=== PATIENT | female | born 1960 | race African-American/Black ===

== ENCOUNTER 2016-12-05 21:31 | Emergency (ER) | payer OTHER ==
[~2016-12-05] VITALS: Ht 167.6 cm; Wt 106.6 kg
--- NOTE | ~2016-12-05 | EKG ---
[address] [place] [address] ELECTROCARDIOGRAM REPORT Name: BRIAN HUGO [facility] [id number] Admission: 12/05/16 Attend Phys: Discharge: 12/06/16 Date of : 56 Report #: [id number] THIS REPORT FOR: //name// [facility] ED Test Date: 2016-12-06 Test Time: 00:08:45 Pat Name: BRIAN HUGO Department: Room: Gender: F Glass Block Bender: jenelle : 1960 Requested By: Winter Estrella Order Number: [id number] MD: William Crowder Measurements Intervals [place] Rate: 89 P: 50 ND: 191 QRS: -5 QRSD: 84 T: 29 QT: 350 QTc: 426 Interpretive Statements Sinus rhythm No significant abnormality No previous ECG available for comparison Electronically Signed On 12-06-2016 7:51:02 MANAGER INTERNSHIP by William Crowder [email or web address] <ELECTRONICALLY SIGNED> By: William Crowder MD, [facility] 12/06/16 0751 [id number] William Crowder MD, FACC /EPI
--- NOTE | ~2016-12-05 | EKG ---
[place] [address] [facility] [place] [address] ELECTROCARDIOGRAM REPORT Name: BRIAN HUGO [facility] [id number] Admission: 12/05/16 Attend Phys: Discharge: 12/06/16 Date of : 56 Report #: [id number] THIS REPORT FOR: //name// [facility] ED Test Date: 2016-12-05 Test Time: 21:38:37 Pat Name: BRIAN HUGO Department: Room: Gender: F Pulverizer Feeder: [facility] : 1960 Requested By: Chichi Renteria Order Number: [id number] MD: William Crowder Measurements Intervals [place] Rate: 83 P: 61 [place]: 192 QRS: -12 QRSD: 83 T: 26 QT: 343 QTc: 403 Interpretive Statements Sinus rhythm Early R-wave progression No previous ECG available for comparison Electronically Signed On 12-06-2016 7:49:40 TEST RACK OPERATOR by William Crowder [email or web address] <ELECTRONICALLY SIGNED> By: William Crowder MD, [facility] 12/06/16 0749 [id number] [id number] William Crowder MD, FACC /EPI
[~2016-12-05 21:31] MED LIST: ASPIRIN EC81 M1 PO; CHLORTHALIDONE25 MG PO; DEPAKOTE; DEPAKOTE ER250 MG PO; DEPAKOTE ER500 MG PO; DICYCLOMINE; HYDROCORTISONE30 G9 TOP; HYDROXYZINE HCL25 M1 PO; LIDODERM 5%1 PATCH TOP; MEDROL DOSPAK21 TAB PO; RANITIDINE; TOPICORT 0.25%15 G1 TOP; TRAMADOL 50 MG50 MG; TRIAMCINOLONE 080 G3 TOP; ULTRAM 50MG TAB50 MG PO; VITAMIN D3400 UNI1 PO; ZOCOR 20 MG TAB20 M1 PO
[2016-12-05] MEDS ORDERED: CATAPRES-TTS 10.1 MG TD (21:42)
[2016-12-05] MEDS ORDERED: SIMVASTATIN40 MG PO (21:43)
[2016-12-05] MEDS ORDERED: PANTOPRAZOLE SO40 M1 PO (21:43)
[2016-12-05] MEDS ORDERED: COREG3.125 MG PO (21:44)
[2016-12-05] MEDS ORDERED: SENEXON-S TABL1 EACH PO (21:44)
[2016-12-05] MEDS ORDERED: LOXAPINE5 MG PO (21:45)
[2016-12-05] MEDS ORDERED: BENTYL 10 MG CA10 M1 PO (21:45)
[2016-12-05 22:06] LABS: ABSOLUTE NEUTROPHILS 4.9 thou/uL (1.4-8.2); BASOPHILS 0.8 % (0.0-2.0); EOSINOPHILS 2.5 % (0.0-3.0); HEMATOCRIT 42.2 % (37.0-47.0); LYMPHOCYTES 23.5 % (24.0-44.0); MCH 29.3 pg (26.0-34.0); MCHC 33.1 % (28.0-37.0); MCV 88.6 fL (80.0-100.0); MONOCYTES 10.2 % (1.0-8.0); PLATELET COUNT 249 thou/uL (150-400); RBC 4.76 mil/uL (4.20-5.00); RDW 14.1 % (10.5-14.5); WBC 7.7 thou/uL (4.0-11.0)
[2016-12-05 22:07] LABS: MANUAL DIFF NO
[2016-12-05 22:19] LABS: ANION GAP 8 mmol/L (7-16); BUN 11 mg/dL (7-18); CALCIUM 9.1 mg/dL (8.5-10.1); CHLORIDE 103 mmol/L (98-107); CO2 28 mmol/L (21-32); CREATININE 0.8 mg/dL (0.6-1.3); GLUCOSE 111 mg/dL (70-99); SODIUM 139 mmol/L (136-145)
[2016-12-05 22:24] LABS: TROPONIN-I < 0.04 ng/mL (<0.04-0.07)
[2016-12-06 01:07] VITALS: BP 146/75
== END 2016-12-06 01:08 | disposition home or self-care (01) ==
LOC: ER 21:31
PROVIDERS: Emergency Medicine
DX: R07.89 Other chest pain (principal); F31.9 Bipolar disorder, unspecified; M79.7 Fibromyalgia; Z88.6 Allergy status to analgesic agent

== ENCOUNTER 2019-03-03 13:12 | Emergency (ER) | payer OTHER ==
[~2019-03-03] VITALS: Ht 167.6 cm; Wt 106.1 kg
[~2019-03-03 13:12] MED LIST changes: +BENTYL 10 MG CA10 M1 PO; +CATAPRES-TTS 10.1 MG TD; +COREG3.125 MG PO; +LOXAPINE5 MG PO; +PANTOPRAZOLE SO40 M1 PO; +SENEXON-S TABL1 EACH PO; +SIMVASTATIN40 MG PO
[2019-03-03] MEDS ORDERED: ELIQUIS2.5 MG PO (13:34)
[2019-03-03 14:25] LABS: ABSOLUTE NEUTROPHILS 2.4 thou/uL (1.4-8.2); BASOPHILS 1.3 % (0.0-2.0); EOSINOPHILS 3.5 % (0.0-3.0); HEMOGLOBIN 13.2 gm/dL (12.0-15.0); LYMPHOCYTES 34.1 % (24.0-44.0); MCH 29.1 pg (26.0-34.0); MONOCYTES 11.1 % (1.0-8.0); PLATELET COUNT 238 thou/uL (150-400); RBC 4.55 mil/uL (4.20-5.00); RDW 13.9 % (10.5-14.5); WBC 4.8 thou/uL (4.0-11.0)
[2019-03-03 14:41] LABS: ANION GAP 9 mmol/L (7-16); BUN 10 mg/dL (7-18); CALCIUM 9.8 mg/dL (8.5-10.1); CHLORIDE 106 mmol/L (98-107); CO2 31 mmol/L (21-32); CREATININE 0.8 mg/dL (0.6-1.0); GLUCOSE 90 mg/dL (74-106); SODIUM 146 mmol/L (136-145); TROPONIN-I <0.06 ng/mL (<0.06)
[2019-03-03 14:45] LABS: POTASSIUM 2.9 mmol/L (3.5-5.1)
[2019-03-03] MEDS ORDERED: TESSALON PERLE100 MG PO (15:17)
[2019-03-03] MEDS ORDERED: KLOR-CON 1010 MEQ PO (15:17)
[2019-03-03] MEDS ORDERED: MAGOX 400400 MG PO (15:17)
[2019-03-03 15:55] VITALS: BP 146/68
--- NOTE | 2019-03-04 | EKG ---
[place] [address] [facility] [place] [address] ELECTROCARDIOGRAM REPORT Name: BRIAN HUGO Room #: [facility]#: [id number] ������������������ Admission: 03/03/19 ������������������ Attend Phys: Discharge: 03/03/19 ������������������ Date of : 56 Report #: [id number] ����������������������������������������������������������������� [id number] THIS REPORT FOR: //name// [facility] ED Test Date: 2019-03-03 Test Time: 13:28:21 Pat Name: BRIAN HUGO Department: Room: Gender: F Food Safety Scientist: : 1960 Requested By: Jose Camilo Order Number: [id number] MD: Oscar Palencia Measurements Intervals [place] Rate: 70 P: 51 IN: 204 QRS: -11 QRSD: 97 T: 29 QT: 386 QTc: 417 Interpretive Statements Sinus rhythm Borderline prolonged IN interval early transition non-specific st/t wave changes Compared to ECG 12/06/2016 00:08:45 no significant changes Electronically Signed On 03-03-2019 23:59:54 CDT by Oscar Palencia [email or web address] ��������������������������������������������� <ELECTRONICALLY SIGNED> ���������������������������������������� By: Oscar Palencia MD ��������������������������������������������� 03/03/19 [id number] 27 Oscar Palencia MD /EPI
== END 2019-03-03 15:57 | disposition home or self-care (01) ==
LOC: ER 13:12
PROVIDERS: Emergency Medicine
DX: J20.8 Acute bronchitis due to other specified organisms (principal); B97.89 Other viral agents as the cause of diseases classified elsewhere; E87.6 Hypokalemia; F31.9 Bipolar disorder, unspecified; M79.7 Fibromyalgia; Z88.6 Allergy status to analgesic agent

== ENCOUNTER 2019-07-06 14:24 | Emergency (ER) | payer OTHER ==
[~2019-07-06] VITALS: Ht 167.6 cm; Wt 79.4 kg
[~2019-07-06 14:24] MED LIST changes: +ELIQUIS2.5 MG PO; +KLOR-CON 1010 MEQ PO; +MAGOX 400400 MG PO; +TESSALON PERLE100 MG PO
[2019-07-06 15:44] LABS: ABSOLUTE NEUTROPHILS 4.1 thou/uL (1.4-8.2); BASOPHILS 0.9 % (0.0-2.0); EOSINOPHILS 1.6 % (0.0-3.0); HEMOGLOBIN 14.3 gm/dL (12.0-15.0); LYMPHOCYTES 19.6 % (24.0-44.0); MCH 29.2 pg (26.0-34.0); MCHC 33.3 g/dL (28.0-37.0); MCV 87.8 fL (80.0-100.0); MONOCYTES 8.4 % (1.0-8.0); PLATELET COUNT 251 thou/uL (150-400); POLYS 69.5 % (36.0-66.0); RBC 4.89 mil/uL (4.20-5.00); RDW 14.2 % (10.5-14.5)
[2019-07-06 16:00] LABS: APTT 18.6 Seconds (24.5-32.8); PROTIME 10.4 Seconds (9.3-11.4)
[2019-07-06 16:06] LABS: URINE BILIRUBIN NEGATIVE (Negative); URINE BLOOD NEGATIVE (Negative); URINE CLARITY CLEAR; URINE COLOR YELLOW; URINE GLUCOSE-RANDOM* NEGATIVE (Negative); URINE KETONES NEGATIVE (Negative); URINE LEUKOCYTES-REFLEX NEGATIVE (Negative); URINE NITRITE-REFLEX NEGATIVE (Negative); URINE PROTEIN (DIPSTICK) 1+ (Negative); URINE SPECIFIC GRAVITY >= 1.030 (1.005-1.035); URINE UROBILINOGEN 0.2 E.U./dl (0.2-1.0)
[2019-07-06 16:18] LABS: SQUAMOUS 4-10 Moderate /LPF (0-3)
[2019-07-06 16:18] LABS: CALCIUM 9.4 mg/dL (8.5-10.1); CREATININE 0.8 mg/dL (0.6-1.0); POTASSIUM 3.3 mmol/L (3.5-5.1)
[2019-07-06 16:19] LABS: BACTERIA-REFLEX None Seen /HPF (None Seen); CASTS None Seen /LPF (None Seen); CRYSTALS None Seen /LPF (None Seen); URINE RBC 0-2 Rare /HPF (0-2); URINE WBC-REFLEX 0-5 Rare /HPF (0-5)
[2019-07-06 16:20] LABS: MUCUS >6 Heavy strn/LPF (None Seen)
[2019-07-06 16:24] LABS: ALBUMIN 3.6 g/dL (3.4-5.0); DIRECT BILIRUBIN 0.1 mg/dL (<0.1-0.3); TOTAL BILIRUBIN 0.5 mg/dL (<0.1-1.0); TOTAL PROTEIN 7.4 g/dL (6.4-8.2)
[2019-07-06] MEDS ORDERED: ZOFRAN ODT4 MG PO (18:08)
[2019-07-06 18:24] VITALS: BP 141/81
== END 2019-07-06 18:25 | disposition home or self-care (01) ==
LOC: ER 14:24
PROVIDERS: Emergency Medicine
DX: R11.2 Nausea with vomiting, unspecified (principal); T81.89XA Other complications of procedures, not elsewhere classified, initial encounter; F31.9 Bipolar disorder, unspecified; I10 Essential (primary) hypertension; E78.5 Hyperlipidemia, unspecified; M79.7 Fibromyalgia; Z88.6 Allergy status to analgesic agent; Y84.9 Medical procedure, unspecified as the cause of abnormal reaction of the patient, or of later complication, without mention of misadventure at the time of the procedure; Y92.89 Other specified places as the place of occurrence of the external cause

== ENCOUNTER 2020-05-28 09:50 | Inpatient (IN) | payer OTHER ==
[~2020-05-28] VITALS: Ht 167.6 cm; Wt 90.7 kg
[2020-05-28 09:50] VITALS: BP 150/88
[~2020-05-28 09:50] MED LIST changes: +ZOFRAN ODT4 MG PO
[2020-05-28 10:43] LABS: ABSOLUTE NEUTROPHILS 6.6 thou/uL (1.4-8.2); BASOPHILS 0.6 % (0.0-2.0); HEMOGLOBIN 13.4 gm/dL (12.0-15.0); LYMPHOCYTES 12.3 % (24.0-44.0); MCH 29.3 pg (26.0-34.0); MCHC 33.5 g/dL (28.0-37.0); MCV 87.3 fL (80.0-100.0); PLATELET COUNT 260 thou/uL (150-400); POLYS 80.1 % (36.0-66.0); RBC 4.58 mil/uL (4.20-5.00); WBC 8.2 thou/uL (4.0-11.0)
[2020-05-28 10:52] LABS: CALCIUM 8.9 mg/dL (8.5-10.1); CREATININE 0.7 mg/dL (0.6-1.0)
[2020-05-28 10:55] LABS: POTASSIUM 2.9 mmol/L (3.5-5.1)
[2020-05-28 10:59] LABS: ALBUMIN 3.2 g/dL (3.4-5.0); TOTAL BILIRUBIN 0.5 mg/dL (0.2-1.0); TOTAL PROTEIN 6.7 g/dL (6.4-8.2)
[2020-05-28 11:00] LABS: LIPASE 87 U/L (73-393); TROPONIN-I <0.06 ng/mL (<0.06)
--- NOTE | 2020-05-28 11:00 | EKG ---
[facility] [place] [address] ELECTROCARDIOGRAM REPORT Name: BRIAN HUGO Room #: [facility]#: [id number] Admission: 05/28/20 Attend Phys: Discharge: Date of : 56 Report #: [id number] THIS REPORT FOR: cc: Dereje Mccoy MD, Samuel D. MD Couchonnal, Luis F. MD ~ THIS REPORT FOR: //name// [facility] ED Test Date: 2020-05-28 Test Time: 10:56:22 Pat Name: BRIAN HUGO Department: Room: Gender: Visiting Professor: [facility] : 1960 Requested By: Scooter Reynaga Order Number: [id number] : Ulysses Dimas Measurements Intervals [place] Rate: 80 P: 92 [place]: 196 QRS: -7 QRSD: 145 T: 9 QT: 388 QTc: 448 Interpretive Statements Sinus rhythm Probable left atrial enlargement Right bundle branch block Inferior infarct, old Lateral leads are also involved Compared to ECG 03/03/2019 13:28:21 Right bundle-branch block now present Myocardial infarct finding now present Electronically Signed On 05-28-2020 10:59:51 CDT by Ulysses Dimas [email or web address] <ELECTRONICALLY SIGNED> By: Ulysses Dimas MD 05/28/20 1059 1056 1056 Ulysses Dimas MD /EPI
[2020-05-28] MEDS ORDERED: FOLIC ACID1 MG PO (11:29)
[2020-05-28] MEDS ORDERED: COLACE 100 MG100 MG PO (11:30)
[2020-05-28] MEDS ORDERED: VITAMIN D350 MCG PO (11:32)
[2020-05-28] MEDS ORDERED: PEG3350510 GM PO (11:33)
[2020-05-28 13:56] VITALS: BP 126/72
--- NOTE | 2020-05-28 14:09 | NUR ---
ATTEMPTED TO CALL REPORT, STATES THAT THEY HAVE COMBATIVE PT AT THIS TIME WILL CALL BACK
--- NOTE | 2020-05-28 14:40 | NUR ---
CALLED TO GIVE REPORT NURSE NOT READY
[2020-05-28 15:07] VITALS: BP 126/72
[2020-05-28 15:15] VITALS: BP 143/98
[2020-05-28 15:42] VITALS: BP 143/98
--- NOTE | 2020-05-28 16:03 | NUR ---
Patient claims she does not remember the dose of home medication and that she will call the son to bring the information for the staff.
--- NOTE | 2020-05-28 17:49 | NUR ---
The staff called the son: [phone], no response, the staff left a voice mail.
--- NOTE | 2020-05-28 18:13 | NUR ---
A/O, calm and cooprative; afebrile. complains of abdomen pain, pain medication given and worked. no n/v. bed rest. will keep monitoring.
--- NOTE | 2020-05-28 18:14 | NUR ---
Son has not called back.Medication reconciliation could not be completed without information from the son, will pass this on to the night nurse.
[2020-05-28 19:04] VITALS: BP 133/73
[2020-05-28 20:58] LABS: URINE BILIRUBIN NEGATIVE (Negative); URINE BLOOD NEGATIVE (Negative); URINE CLARITY CLEAR; URINE COLOR YELLOW; URINE GLUCOSE-RANDOM* NEGATIVE (Negative); URINE KETONES NEGATIVE (Negative); URINE LEUKOCYTES-REFLEX NEGATIVE (Negative); URINE NITRITE-REFLEX NEGATIVE (Negative); URINE PROTEIN (DIPSTICK) NEGATIVE (Negative); URINE UROBILINOGEN 0.2 E.U./dl (0.2-1.0)
[2020-05-29 00:17] VITALS: BP 130/64
--- NOTE | 2020-05-29 03:54 | NUR ---
ASSUMED CARE OF OT AT 1900HRS. PT AOX4 AND UP AD TEJ. PT CALL FOR ASSISTANCE NEEDED. PT PLACED NPO AT MN FOR POSSIBLE SX IN THE AM. PT MED REC NOT COMPLETED PT IS UNABLE TO PROVIDE INFO. PT WILL OBTAIN INFO IN THE AM. PT DENIED ANY SIGNIFICANT PAIN, NAUSEA OR SOA. PT WAS ABLE TO GET COMFORTABLE AND SLEEP PPART OF HE SHIFT. VSS AND NO S/S OF ACUTE DISTRESS. WILL CONTINUE TO MONITOR.
[2020-05-29 04:06] VITALS: BP 131/84
[2020-05-29 06:14] LABS: HEMATOCRIT 40.3 % (37.0-47.0); HEMOGLOBIN 13.1 gm/dL (12.0-15.0); MCH 29.4 pg (26.0-34.0); MCHC 32.6 g/dL (28.0-37.0); MCV 90.1 fL (80.0-100.0); RBC 4.48 mil/uL (4.20-5.00); RDW 14.3 % (10.5-14.5); WBC 4.4 thou/uL (4.0-11.0)
[2020-05-29 06:30] LABS: CALCIUM 8.7 mg/dL (8.5-10.1); CREATININE 0.7 mg/dL (0.6-1.0)
[2020-05-29 07:35] VITALS: BP 144/74
--- NOTE | 2020-05-29 11:20 | NUR ---
Order of Dr. Whipple consult. paged Dr. Whipple at [phone].
[2020-05-29 12:29] VITALS: BP 155/68
[2020-05-29] MEDS ORDERED: GNP SENNA PLUS1 EACH PO (13:17)
[2020-05-29] MEDS ORDERED: HYDROCHLOROTHIA25 M2 PO (13:17)
[2020-05-29] MEDS ORDERED: COLACE100 MG PO (13:18)
[2020-05-29] MEDS ORDERED: ELIQUIS2.5 MG PO ×2 (13:18→13:31)
[2020-05-29] MEDS ORDERED: CARVEDILOL12.5 MG PO (13:19)
[2020-05-29] MEDS ORDERED: PANTOPRAZOLE SO40 MG PO (13:20)
[2020-05-29] MEDS ORDERED: SIMVASTATIN80 MG PO (13:21)
[2020-05-29] MEDS ORDERED: LEVSIN0.125 MG PO (13:22)
[2020-05-29] MEDS ORDERED: KLOR-CON M2020 MEQ PO (13:22)
--- NOTE | 2020-05-29 18:29 | NUR ---
Patient stated she wanted to leave but agreed to stay after talking to the staff; 5 minutes ago, patient claimed again that she would leave again. Dr. Thakur paged, awaiting response. patient refused to wait to talk to the doctor. saying," this is a bad hospital." . signed AMA. stating she would call [facility].
--- NOTE | 2020-05-29 18:33 | NUR ---
Patient states that this hospital treats black people badly so black people will not come back because this hospital does not want to work for black people.
--- NOTE | 2020-05-29 18:56 | NUR ---
A/O, calm and pleasant; patient claimed she had headache, talking about her concern about BP. Doctor Ofe gave order of BP medication. Patient left AMA, AMA paper signed, IV out.
== END 2020-05-29 18:57 | disposition left against medical advice (07) | DRG 389 ==
LOC: ER 09:50 → EROBS 13:33 → 4W 15:22
PROVIDERS: Emergency Medicine; ADMIT Hospitalist; ATTEND Hospitalist
DX: K56.600 Partial intestinal obstruction, unspecified as to cause (principal); C64.2 Malignant neoplasm of left kidney, except renal pelvis; F31.9 Bipolar disorder, unspecified; I10 Essential (primary) hypertension; E78.5 Hyperlipidemia, unspecified; E66.9 Obesity, unspecified; M79.7 Fibromyalgia; Z20.828 Contact with and (suspected) exposure to other viral communicable diseases; K43.9 Ventral hernia without obstruction or gangrene; D25.9 Leiomyoma of uterus, unspecified; Z53.29 Procedure and treatment not carried out because of patient's decision for other reasons; Z68.32 Body mass index [BMI] 32.0-32.9, adult; Z88.6 Allergy status to analgesic agent; E87.6 Hypokalemia
CPT/HCPCS: 10040

== ENCOUNTER 2021-11-26 12:16 | Inpatient (IN) | payer OTHER ==
[~2021-11-26] VITALS: Ht 167.6 cm; Wt 114.0 kg
[~2021-11-26 12:16] MED LIST changes: +CARVEDILOL12.5 MG PO; +COLACE 100 MG100 MG PO; +COLACE100 MG PO; +FOLIC ACID1 MG PO; +GNP SENNA PLUS1 EACH PO; +HYDROCHLOROTHIA25 M2 PO; +KLOR-CON M2020 MEQ PO; +LEVSIN0.125 MG PO; +PANTOPRAZOLE SO40 MG PO; +PEG3350510 GM PO; +SIMVASTATIN80 MG PO; +VITAMIN D350 MCG PO
[2021-11-26 12:18] VITALS: BP 151/70
--- NOTE | 2021-11-26 20:52 | NUR ---
PT HAS NOT BEEN ON MONITORING EQUIPMENT DUE TO PT INITIALLY BEING TRANSFERRED TO ER FOR [facility]. PT ADMISSION ORDER STATUS CHANGED TO CC TELE PER COVID POSITIVE STATUS.
[2021-11-27 01:30] VITALS: BP 128/61
[2021-11-27 03:33] LABS: CALCIUM 9.4 mg/dL (8.5-10.1); CHOLESTEROL 223 mg/dL (<200); CREATININE 0.8 mg/dL (0.6-1.0); HDL CHOLESTEROL 59 mg/dL (>40); LDL CHOLESTEROL 145 mg/dL (<100); POTASSIUM 3.3 mmol/L (3.5-5.1); TC:HDL 3.8 Ratio (Not establshd); TRIGLYCERIDE 99 mg/dL (<150); VLDL 20 mg/dL (<40)
[2021-11-27 03:35] LABS: SERUM ASSESSMENT Clear
[2021-11-27 04:00] VITALS: BP 124/58
[2021-11-27 08:00] VITALS: BP 150/82
[2021-11-27 16:00] VITALS: BP 143/88
[2021-11-27 20:00] VITALS: BP 150/84
[2021-11-28 04:00] VITALS: BP 142/65
[2021-11-28 05:36] LABS: GLYCOHEMOGLOBIN (HGB A1C) 6.3 % (4.8-5.6)
[2021-11-28 06:10] LABS: HEMATOCRIT 39.7 % (37.0-47.0); HEMOGLOBIN 12.9 gm/dL (12.0-15.0); MCH 29.9 pg (26.0-34.0); MCHC 32.6 g/dL (28.0-37.0); MCV 91.9 fL (80.0-100.0); RBC 4.32 mil/uL (4.20-5.00); RDW 13.7 % (10.5-14.5); WBC 3.3 thou/uL (4.0-11.0)
[2021-11-28 06:35] LABS: CALCIUM 9.1 mg/dL (8.5-10.1); CREATININE 0.8 mg/dL (0.6-1.0); MAGNESIUM 1.8 mg/dL (1.8-2.4); POTASSIUM 3.3 mmol/L (3.5-5.1)
[2021-11-28 10:07] VITALS: BP 158/90
[2021-11-28 12:00] VITALS: BP 136/68
[2021-11-28 16:00] VITALS: BP 148/80
[2021-11-28 20:22] VITALS: BP 132/69
[2021-11-29] VITALS (7 sets, daily range): BP systolic 132–142; BP diastolic 69–85
--- NOTE | 2021-11-29 04:28 | NUR ---
PT AMBULATING IN ROOM INDEPENDENTLY AND IS TOLERATING WELL. LORTAB PROVIDING PAIN RELIEF. RESTING COMFORTABLY. NO NEEDS VOICED. CALL LIGHT WITHIN REACH. FREQUENT OBSERVATION.
--- NOTE | 2021-11-29 12:59 | NUR ---
PT REFUSED ALL MEDS EXCEPT COREG AND TYLENOL TODAY. DR. RIVERS AND DR. FERNANDO AWARE.
--- NOTE | 2021-11-29 15:55 | NUR ---
REPORT CALLED TO FELICITY GRAHAM.
--- NOTE | 2021-11-29 19:49 | NUR ---
PT ADMITTED FROM ER ABOUT 1630PM, PT IS A&OX3 ( PERSON , PLACE AND TIME), PT CAN FOLLOW COMMANDS, PT IS ON ROOM AIR, PT 'S VS AND O2SAT ARE STABLE AT DAY SHFIT, PT IS CONTINUING COVID ISOLATIONS.
[2021-11-29 20:58] LABS: CALCIUM 9.2 mg/dL (8.5-10.1); CREATININE 0.8 mg/dL (0.6-1.0); MAGNESIUM 2.1 mg/dL (1.8-2.4); POTASSIUM 3.6 mmol/L (3.5-5.1)
--- NOTE | 2021-11-30 03:52 | NUR ---
Requested tylenol for pain which she stated is muskuloskeletal in nature and generalized. She only took 1 tab ( 325 mg) with some relief. She also requested for eliquis which she takes at home and only took 500 mg of divalproex at HS instead of 1000 mg. She stated she takes 500 mg BID. BRUISE TRIMMER notified and order received. Also c/o itching in her vaginal area and requested cream for yeast. Nystatin cream ordered. She's tolerating room air well and denies being short of breath. Cont. on enhanced precaution, afebrile. Up ad delroy in room with steady gait.
[2021-11-30 05:09] VITALS: BP 146/85
--- NOTE | 2021-11-30 07:26 | EKG ---
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 Assembler: JAMES : 1960 Requested By: Leonidas Mckay Order Number: [id number] MD: Raman Stevens Measurements Intervals [place] Rate: 82 P: 45 [place]: 198 QRS: -23 QRSD: 148 T: 25 QT: 394 QTc: 461 Interpretive Statements Sinus rhythm Right bundle branch block Inferior infarct, old Lateral leads are also involved Compared to ECG 05/28/2020 10:56:22 No significant changes Electronically Signed On 11-30-2021 7:26:19 FIRE EXTINGUISHER REPAIRER INSPECTOR by Raman Stevens [email or web address] <ELECTRONICALLY SIGNED> By: Raman Stevens MD, [facility] 11/30/21 0726 36 36 Raman Stevens MD, FAC /EPI
[2021-11-30 07:45] VITALS: BP 125/63
[2021-11-30 08:15] LABS: CALCIUM 9.3 mg/dL (8.5-10.1); CREATININE 0.7 mg/dL (0.6-1.0); POTASSIUM 3.2 mmol/L (3.5-5.1)
--- NOTE | 2021-11-30 10:53 | EKG ---
[address] [place] [address] ELECTROCARDIOGRAM REPORT Name: BRIAN HUGO Room #: 363- ADM IN M.R.#: [id number] Admission: 11/26/21 Attend Phys: Gina Orozco MD Discharge: Date of : 56 Report #: [id number] [facility] Test Date: 2021-11-30 Test Time: 09:06:20 Pat Name: BRIAN HUGO Department: Room: 363 Gender: F Weather Forecaster: DARIEN : 1960 Requested By: Leonidas Mckay Order Number: [id number] : Raman Stevens Measurements Intervals [place] Rate: 80 P: 59 [place]: 194 QRS: -11 QRSD: 159 T: 12 QT: 399 QTc: 461 Interpretive Statements Sinus rhythm Probable left atrial enlargement Right bundle branch block Left ventricular hypertrophy Inferior infarct, old Compared to ECG 11/29/2021 18:37:03 Left ventricular hypertrophy now present Myocardial infarct finding still present Electronically Signed On 11-30-2021 10:53:37 CLINICAL SUPPORT TECH by Raman Stevens [email or web address] <ELECTRONICALLY SIGNED> By: Raman Stevens MD, [facility] 11/30/21 1053 5 09 Raman Stevens MD, [facility] /EPI
--- NOTE | 2021-11-30 11:28 | NUR ---
INITIAL ASSESSMENT: EMILEE reviewed chart and spoke with nursing and attending physician. Pt was brought to [facility] for admission to the [facility] unit. Pt had a positive COVID PCR test in the ER. Pt was admitted to . Pt with hx of bipolar and schizophrenia. Pt lives at home. Dr. Orozco is pt's outpatient psychiatrist. Plan is for pt to d/c to the [facility] unit when out of isolation. Pt is currently afebrile and on room air. EMILEE discussed with [facility] SW team. EMILEE is following to assist as needed with discharge planning.
[2021-11-30] MEDS ORDERED: MIRALAX119 GM PO (12:56)
[2021-11-30] MEDS ORDERED: DIAZEPAM 5 MG5 M1 PO (12:59)
[2021-11-30] MEDS ORDERED: DIVALPROEX SOD250 M1 PO (13:00)
[2021-11-30] MEDS ORDERED: TRIAMCINOLONE 080 G3 (13:01)
[2021-11-30 15:43] VITALS: BP 140/76
[2021-11-30 19:34] VITALS: BP 150/78
[2021-12-01 03:35] VITALS: BP 155/82
--- NOTE | 2021-12-01 07:04 | NUR ---
ON ROOM AIR THROUGHOUT THE NIGHT. DENIED ANY COMPLAINTS.
[2021-12-01 08:29] VITALS: BP 142/82
[2021-12-01 15:55] VITALS: BP 140/84
--- NOTE | 2021-12-01 18:28 | NUR ---
RN ASSUMED PT'S CARE AT 0700AM, PT IS A&OX4, PT IS ON ROOM AIR, PT'S O2SAT AND VS ARE STABLE AT DAY SHIFT, PT GETS UP TO CHAIR AND BATH ROOM WITHOUT ASSIST, PT IS CONTINUING COVID ISOLATION, PT DENIES SOB AND PAIN AT DAY SHIFT.
[2021-12-01 20:15] VITALS: BP 139/70
[2021-12-02 03:15] VITALS: BP 120/97
--- NOTE | 2021-12-02 07:31 | NUR ---
PT MAKING PROGRESS TOWARDS GOALS. DENIED ANY SOA OVERNIGHT. LUNGS CTA THROUGHOUT. CONTINUE TO MONITOR.
[2021-12-02 07:37] VITALS: BP 122/68
--- NOTE | 2021-12-02 10:49 | NUR ---
SW reviewed chart and spoke with nursing and attending physician. Pt remains in Enhanced Isolation due to COVID. Pt is afebrile and on O2. SW discussed case with psych today. Plan is for pt to discharge to [facility] unit when out of Enhanced Isolation. EMILEE is following to assist as needed with discharge planning.
--- NOTE | 2021-12-02 14:33 | NUR ---
ASSUMED CARE AT SHIFT CHANGE. PT A/O X 4, PLESANT AND CALM. UP AD TEJ IN ROOM WITH STEAD GAIT. DENIES SOA WITH AMBULATION. UP TO CHAIR FOR LUNCH AND SAT FOR APPROX 3HRS. PT DENIES PAIN THROUGHOUT SHIFT. PROGRESSING TOWARDS GOALS. ADEQUTE ORAL INTAKE THROUGHOUT SHIFT THUS FAR. WILL CONT TO MONITOR AND FOLLOW POC.
[2021-12-02 17:31] VITALS: BP 120/58
[2021-12-02 20:20] VITALS: BP 150/77
[2021-12-03 04:58] VITALS: BP 136/72
--- NOTE | 2021-12-03 07:38 | NUR ---
ON ROOM AIR THROUGHOUT THE NIGHT. DENIED ANY SOA OVERNIGHT. UP AD TEJ AROUND ROOM. PLEASANT AND STABLE AFFECT.
[2021-12-03 07:48] VITALS: BP 148/71
--- NOTE | 2021-12-03 11:31 | NUR ---
Pt assessed for early LOS. Pt admitted to [facility]W [facility] admit r/t covid+. PMH bipolar. 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 She is eating well on regular diet with no c/o chewing/swallowing issues noted. She is on enhanced isolation precautions and she did not answer the phone when RD attempted to contact. Labs and meds reviewed. Will consider low nutrition risk at this time.
--- NOTE | 2021-12-03 14:11 | NUR ---
SW reviewed chart and spoke with nursing and attending physician. Pt remains in Enhanced Isolation due to COVID. Pt is afebrile and on room air. No weekend discharge planned. Enhanced Isolation precautions to be discontinued on Monday, 12/06. Pt will discharge to [facility] unit. SW is available to assist as needed.
[2021-12-03 15:47] VITALS: BP 121/58
--- NOTE | 2021-12-03 18:21 | NUR ---
PROGRESSING TOWARDS POC GOALS.
[2021-12-03 20:10] VITALS: BP 138/60
[2021-12-04 04:38] VITALS: BP 128/91
[2021-12-04 04:59] LABS: HEMATOCRIT 38.2 % (37.0-47.0); HEMOGLOBIN 12.3 gm/dL (12.0-15.0); MCH 29.5 pg (26.0-34.0); MCHC 32.1 g/dL (28.0-37.0); MCV 91.9 fL (80.0-100.0); RBC 4.16 mil/uL (4.20-5.00); RDW 13.7 % (10.5-14.5); WBC 4.2 thou/uL (4.0-11.0)
[2021-12-04 05:13] LABS: CALCIUM 8.5 mg/dL (8.5-10.1); CREATININE 0.7 mg/dL (0.6-1.0); POTASSIUM 4.1 mmol/L (3.5-5.1); TOTAL BILIRUBIN 0.3 mg/dL (0.2-1.0); TOTAL PROTEIN 6.5 g/dL (6.4-8.2)
[2021-12-04 07:20] VITALS: BP 146/61
[2021-12-04 16:51] VITALS: BP 117/57
--- NOTE | 2021-12-04 18:43 | NUR ---
NO CHAMGE ON THIS SHIFT. PROGRESSING TOWARDS POC GOALS.
[2021-12-04 19:38] VITALS: BP 134/59
--- NOTE | 2021-12-05 02:00 | NUR ---
PT ADMITTED TO UNIT THIS NOC. PT IS A/O X4 AND IS UP AD TEJ. RA. VSS. AFEBRILE. DENIES C/O PAIN OR DISCOMFORT AT THIS TIME. ALL NOC MEDICATION GIVEN BY PREVIOUS UNIT. PT CALLS OUT APPROPRIATELY FOR ASSISTANCE. CALL LIGHT IS WITHIN REACH.
[2021-12-05 04:14] VITALS: BP 147/72
[2021-12-05 07:39] VITALS: BP 144/83
[2021-12-05 16:30] VITALS: BP 121/61
[2021-12-05 20:00] VITALS: BP 126/62; BP 128/62
--- NOTE | 2021-12-05 23:20 | NUR ---
PT ALERT AND ORIENTED X4. VSS AFEBRILE. UNLABORED ON RA. NO C/O PAIN. PT UP AD TEJ IN RM WITH STEADY GAIT.
[2021-12-06 05:20] VITALS: BP 155/70
--- NOTE | 2021-12-06 07:33 | NUR ---
PT HAD UNEVENTFUL NIGHT EXCEPT AT TIMES SHE TALKS TO PEOPLEOUTSIE HER WINDOW. SHE IS EASILY REORIENTED AND NONVIOLENT . HAS BEEN APPRIPRIATE MOST OF NIGHT.
[2021-12-06 07:46] VITALS: BP 137/67
[2021-12-06 08:05] VITALS: BP 137/67
[2021-12-06] MEDS ORDERED: TRAZODONE HCL100 MG PO (13:29)
[2021-12-06] MEDS ORDERED: DIAZEPAM 2MG TAB2 MG PO (13:29)
[2021-12-06] MEDS ORDERED: ZINC SULFATE50 MG PO (13:30)
[2021-12-06] MEDS ORDERED: VITAMINC500 PO (13:31)
== END 2021-12-06 14:27 | DRG 179 ==
LOC: ER 12:16 → 3W 20:52 → EROBS 20:52 → 3W 11-29 16:00 → 4W 12-04 23:12
PROVIDERS: Emergency Medicine; Internal Medicine; Nurse Practitioner Family; ADMIT Psychiatry & Neurology Psychiatry; ATTEND Psychiatry & Neurology Psychiatry
DX: U07.1 COVID-19 (principal); E78.5 Hyperlipidemia, unspecified; I10 Essential (primary) hypertension; F31.9 Bipolar disorder, unspecified; F41.1 Generalized anxiety disorder; M79.7 Fibromyalgia; Z79.01 Long term (current) use of anticoagulants; Z88.6 Allergy status to analgesic agent
CPT/HCPCS: 10045; 10879

== ENCOUNTER 2021-11-26 13:09 | Inpatient (IN) | payer OTHER ==
[2021-11-30] MEDS ORDERED: MIRALAX119 GM PO (12:56)
[2021-11-30] MEDS ORDERED: DIAZEPAM 5 MG5 M1 PO (12:59)
[2021-11-30] MEDS ORDERED: DIVALPROEX SOD250 M1 PO (13:00)
[2021-11-30] MEDS ORDERED: TRIAMCINOLONE 080 G3 (13:01)
[2021-12-06] MEDS ORDERED: TRAZODONE HCL100 MG PO (13:29)
[2021-12-06] MEDS ORDERED: DIAZEPAM 2MG TAB2 MG PO (13:29)
[2021-12-06] MEDS ORDERED: ZINC SULFATE50 MG PO (13:30)
[2021-12-06] MEDS ORDERED: VITAMINC500 PO (13:31)
[2021-12-06 16:05] LABS: ABSOLUTE NEUTROPHILS 2.2 thou/uL (1.4-8.2); BASOPHILS 2.9 % (0.0-2.0); EOSINOPHILS 3.4 % (0.0-3.0); HEMATOCRIT 39.9 % (37.0-47.0); HEMOGLOBIN 12.7 gm/dL (12.0-15.0); LYMPHOCYTES 25.5 % (24.0-44.0); MCH 29.2 pg (26.0-34.0); MCHC 31.9 g/dL (28.0-37.0); MCV 91.4 fL (80.0-100.0); MONOCYTES 11.1 % (1.0-8.0); PLATELET COUNT 232 thou/uL (150-400); POLYS 57.1 % (36.0-66.0); RBC 4.37 mil/uL (4.20-5.00); RDW 13.6 % (10.5-14.5); WBC 3.9 thou/uL (4.0-11.0)
[2021-12-06 16:27] LABS: ANION GAP 9 mmol/L (7-16); BUN 13 mg/dL (7-18); CALCIUM 9.4 mg/dL (8.5-10.1); CHLORIDE 107 mmol/L (98-107); CHOLESTEROL 164 mg/dL (<200); CO2 27 mmol/L (21-32); CREATININE 0.7 mg/dL (0.6-1.0); GLUCOSE 100 mg/dL (74-106); HDL CHOLESTEROL 46 mg/dL (>40); LDL CHOLESTEROL 102 mg/dL (<100); SODIUM 143 mmol/L (136-145); TC:HDL 3.6 Ratio (Not establshd); TRIGLYCERIDE 84 mg/dL (<150); VLDL 17 mg/dL (<40)
--- NOTE | 2021-12-06 18:18 | NUR ---
PATIENT TRANSFERRED FROM [facility] ON UNIT PATIENT CALM COOPERATIVE. PATIENT ALERT ORIENTED TIMES 4 DENIES SI/HI/AH/VH AT PRESENT. PATIENTS ABDOMEN SOFT BOWEL SOUNDS PRESENT PATIENTS LUNGS CLEAR. PATIENT HAS HISTORY OF SCHIZOEFFECTIVE DO, HTN, HYPERLIPIDEMIA, PULMONARY EMBOLISM. PATIENT NOT MED COMPLIANT WAS ON DEPAKOTE HER NOT TAKING THE MEDICATION CAUSED DELUSIONS AND PARANOIA. PATIENT IS NOW HOMELESS SHE LOST HER HOUSE DUE TO [employer] SOLD HOME. SHE WAS STAYING WITH HER SON AND WAS HAVING ALTERCATIONS WITH SONS . SO PATIENT COULD NOT LIVE WITH SON ANYMORE, PATIENT CALM COOPERATIVE. WILL CONTINUE TO MONITOR PATIENT FOR SAFETY AND BEHAVIORS.
[2021-12-06 19:45] VITALS: BP 128/65
[2021-12-06 20:00] VITALS: BP 128/65
[2021-12-07 02:06] LABS: GLYCOHEMOGLOBIN (HGB A1C) 6.4 % (4.8-5.6)
--- NOTE | 2021-12-07 03:24 | NUR ---
Assumed care on 12/06/21 @ 1900, seated in the day room watching TV and socializing with peers. Cooperated with assessment HRRR, Lungs CTA bilat, ABD N x a4Q. Able to take meds whole with water, refused Vitamin C. Asked apropriate questions about medication. Asked about a cream that is not on her meds list, will refer this question to the doctor who sees her on Monday. Asks for Tylenol 650 for general pain, which was provided. Retired to bed @ . Will continue to monitor for safety and comfort as per unit protocol.
[2021-12-07 07:52] VITALS: BP 153/72
[2021-12-07 09:45] VITALS: BP 150/67
--- NOTE | 2021-12-07 10:40 | NUR ---
Nutrition: New admit [facility] unit with unspecified psychosis. BMI 38 obesity class 2, no recent weight changes reported. Required transfer to [facility] due to COVID+, now returned back to unit. PMH: bipolar. 12/02 BM. Intake is good, 75-100% of meals on regular diet. Pt did voice likes to drink ensure when her "fibromyalgia flares up" rather than eat meal. Ensure on unit as desired. On vitamin D/C, folic acid and zinc supplements. Low nutrition risk.
--- NOTE | 2021-12-07 16:01 | NUR ---
Pt asked for a PRN Diazepam and when given the order at the time of 2 mg PO of diazepam pt refused the entire dose of 2 mg requesting that the dose be cut in half. Dr. Orozco was paged and new order received for diazepam 1 mg PRN q8PRN. This RN called pharmacy and spoke to Scooter as this RN asked if the previously pulled diazepam should be wasted in full and pulled under the new order. This RN was educated to give half of the dose that was already pulled and to waste the remainder in the pyxis which was done buy this RN and RN inside sales supervisor, Monica.
--- NOTE | 2021-12-07 17:08 | NUR ---
Kate was alert and oriented x4 this shift. She presented as calm, cooperative, and pleasant, yet paranoid. Due to not having DPOA paperwork and pt's son, Jamin, initially signed pt in, pt was to sign herself in for consent and treatment. When explaining pt's consent for tx she stated "you guys aren't going to be doing experiments on me, right?". She denied SI/HI/CHRISTIANSON and was medication compliant, although pt refused her supplements/vitamins this morning. She received tylenol PRN and diazepam PRN per pt request to relieve her fibromyalgia with effectiveness. She otherwise did not voice any physical complaints. She participated in afternoon groups and was meal compliant. Pt's clonidine patch was placed this afternoon as pt previously had it ordered for every Monday; next patch to be applied 12/14/21. Pt's bilateral ankles were noted to have +2 edema; communicated with Dr. Mccall. Pt is currently sitting comfortably in her room eating dinner, will continue to monitor.
[2021-12-07 20:14] VITALS: BP 137/72
--- NOTE | 2021-12-08 04:09 | NUR ---
12-07-21 CARE TRANSFERRED 0 OBSERVED PT SITTING IN DAY ROOM. LATER PT AAOX4, VSS, RR EVEN AND NONLABORED ON RA, LUNGS CLEAR, HT RR, ABD SOFT. PT DENIES PAIN AND SI/HI. PT CALM AND COOPEATIVE. PT HAD NO DIFIFUCLTIES TAKING MEDICATION WHOLE WITH WATER. PT WILL CONTINUE TO BE MONITOR PER [facility] PROTOCOL.
[2021-12-08 09:54] VITALS: BP 128/64
--- NOTE | 2021-12-08 11:26 | NUR ---
RESUMMED CARE FROM OVERNUGHT SHIFT THUS AM, PATIENT I ROOM LYING QUIET. PATIENT ALERT ORIENTED TIMES 4 PATIENT DENIES SI/HI/AH/VH AT PRESENT. PATIENT FOR AM MEDICATION DID NOT WANT VITAMINS BUT TOOK OTHER MEDICATION. DURING TREATMENT TEAM I LET DR RAPHAEL KNOW THAT PATIENT REFUSES TO TAKE VITAMINS. DR RAPHAEL SAID SHE WILL TALK TO HOSPITALIST AND IF NOT NEEDED WILL DC THE VITAMINS. PATIENTS ABDOMEN SOFT BOWEL SOUNDS PRESENT PATIENTS LUNGS CLEAR. PATIENT DOES PARTICIPATE IN GROUPS SHE HAS NOT DISPLAYED ANY BEHAVIORS. WILL CONTINUE TO MONITOR PATIENT FOR SAFETY AND BEHAVIORS.
[2021-12-08 19:36] VITALS: BP 138/70
[2021-12-08 19:40] VITALS: BP 138/70
--- NOTE | 2021-12-08 22:51 | NUR ---
PATIENT CARE WAS RESUMED AT 1900. SHE WAS RESTING IN BED IN HER ROOM WITH EYES OPEN. SHE IS ALERT AND ORIENTED AND ABLE TO VERBALIZE HER NEEDS.SHE IS DENIES ANY SI/AVH/HI. SHE C/O GENERALIZED BODY ACHE FROM ARTHRITIS. ORIENTED TO ALL HER MEDICATION AND SHE TOOK HER MEDS WHOLE. BS ACTIVE X4 QUAD , ABD IS SOFT MODERATE SIZE AND NONE TENDER.SHE IS CONTINENT OF BOWEL AND BLADDER. LUNGS ARE CLEAR AND SHE AMBULATES WITH STEADY GAIT. [id number] CHECKS ARE ONGOING, BED IS LOW AND LOCKED. NONE SKID SOCK ON CONTINUE CARE
[2021-12-09 09:11] VITALS: BP 121/82
[2021-12-09 11:43] VITALS: BP 121/82
--- NOTE | 2021-12-09 13:19 | NUR ---
RESUMMED CARE; PATIENT LOCATED IN HER ROOM APON ROUNDS; A&O*3; PRESENTS [id number]; PATIENT IS MEAL COMPLIANT-NOTING ASKING FOR ENSURE SUPPLEMENTS MULTIPLE TIMES; PATIENT STATES GENERALIZED PAIN 05/29-MEDICATIONS GIVEN PER JAN; VSS ON ROOMAIR; AMBULATORY WITHOUT AID; PATIENT NOTED BEING VERY WITHDRAWN THROUGHOUT THE DAY-BEING ENCOURGED BY STAFF IN ORDER FOR HER TO COME OUT OF HER ROOM FOR MEALS/GROUPS; PATIENT DID REFUSE ALL VITAMINS THIS MORNING DURING MEDICATION PASS-STATING "I AM A HOLISTIC PERSON, I DON'T NEED THAT STUFF." NOTIFIED DURING ROUNDS; PATIENT WAS REMINDED BY EXPORT SALES MANAGER THE SHE NEEDS TO ATTEND GROUPS AND BE OUT OF HER ROOM INSTEAD OF ISOLATING SELF; FALL PRECAUTIONS ARE IN PLACE-SEZIURE PRECAUTIONS IN PLACE PER PAST HISTORY OF SEZUIRES; WILL CONTINUE TO MONITIOR PER [facility] PROTOCOL;
--- NOTE | 2021-12-09 16:48 | NUR ---
Met with patient. Patient provided background information. Patient reports hospitalized due to son saying she had been off her medication for too long. Patient discussed a housing situation and needing to speak to Oskar Clarke. Patient reports born and raised in [place], having 2 brothers and 1 sister that is . Patient has 2 children, a daughter in [place] and a son that resides in [facility] [facility]. Patient reports she has fibromyalgia and short term memory loss which is what the Depakote was prescribed for. 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 Patient is followed by Dr. Mckeon, psychiatrist at . Patient reports having completed high school and went 2 years in college. Patient reports she has never been . She denies any current SI/HI. Patient would like assistance in securing housing and inheritance from grandfather. She stated the government needs to pay for her Master's degree in order for her to get the money. 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
[2021-12-09 18:09] VITALS: BP 122/69
[2021-12-09 19:31] LABS: URINE BILIRUBIN NEGATIVE (Negative); URINE BLOOD NEGATIVE (Negative); URINE CLARITY SL CLOUDY; URINE COLOR YELLOW; URINE GLUCOSE-RANDOM* NEGATIVE (Negative); URINE KETONES 1+ (Negative); URINE LEUKOCYTES-REFLEX NEGATIVE (Negative); URINE NITRITE-REFLEX NEGATIVE (Negative); URINE PROTEIN (DIPSTICK) NEGATIVE (Negative); URINE SPECIFIC GRAVITY >= 1.030 (1.005-1.035); URINE UROBILINOGEN 0.2 E.U./dl (0.2-1.0)
[2021-12-09 19:46] VITALS: BP 125/62
[2021-12-09 19:50] VITALS: BP 125/62
--- NOTE | 2021-12-09 23:51 | NUR ---
CE RODAS WAS RESUNED AT 1900. SHE WAS IN HER ROOM LAYING IN BED WITH EYES OPEN. SHE IS ABLE TO COMMUNICATE HER CONCERNS. DENIES SI/AVH/HI. TOOK HER MEDS WHOLE AND BED IS LOW, LOCKED.LUNGS ARE CLEARBS ACTIVE X4 QUADS. BS ACTIVE X4 QUADS. MINIASSIT WITH CARE.
--- NOTE | 2021-12-10 08:31 | NUR ---
Phone call to patient's son, Jamin Chaparro. Jamin requested the SW call back and leave a message as he was currently at his son's [employer] graduation. EMILEE called back and left a message with the phone number, requesting a return phone call.
[2021-12-10 10:15] VITALS: BP 143/85
[2021-12-10 10:18] VITALS: BP 143/85
--- NOTE | 2021-12-10 18:32 | NUR ---
Kate was alert and oriented x3 this shift but loosly oriented to situation. This morning pt was noted talking to herself in her room. Pt appeared a little disorganized as well. She denied SI/HI/CHRISTIANSON and remained safe on the unit throughout the shift. She presented as calm, cooperative, and pleasan.t She was medication and meal compliant this shift, without difficulty. She did express her appetite was improving but continues to ask for ensures despite eating more than 50% of her meals, which pt was educated on througohut the day. She asked to call the [employer] regarding housing and stated that Dr. Orozco was aware of her wishes to call them. Pt expressed possible plan to D/C on Monday. Pt was less isolative this shift and out in the dayroom throughout the day, but kept to herself. Will continue to monitor.
[2021-12-10 19:02] VITALS: BP 144/61
--- NOTE | 2021-12-11 00:18 | NUR ---
PATIENT CARE WAS RESUMED AT 1900. SHE IS IN HER OOM IN BED BUT AWAKE. ABLE TO VERBALIZE HER CONCERNS. SHE DENIES, PAINS/AVH/HI AND SHE TOOK HER MESD WHOLE. SHE IS A MAX ASSIST WITH CARE. SHE IS CONTINENT OF BOWEL AND BLADDER.LUNGS ARE CLEAR BS ACTIVE X4 QUAD.BED IS LOW, LOCKED AND NON SKID SOCKS ARE ON. CONTINUE CARE
[2021-12-11 05:52] VITALS: BP 133/62
[2021-12-11 09:59] VITALS: BP 120/69
[2021-12-11 11:11] VITALS: BP 120/69
--- NOTE | 2021-12-11 11:29 | NUR ---
RESUMMED CARE; PATIENT LOCATED IN BED RESTINF COMFORTABLY; A&O*4; INTERMITTENT CONFUSION NOTED; BLE EDEMA PRESENT; VERBALIZES GENERALIZED PAIN 05/29-MEDICATIONS GIVEN PER MAR; DENIES SOB-CP; VSS ON ROOMAIR; AMBULATES WITHOUT AID-STEADY GAIT VISUALIZED; PATIENT COMPLANT OF VAGINAL BURNING UPON URINATION ALONG SIDE VAGINAL ITCHING; MD NOTIFIED OF FINDINGS; DENIES SI/HI/AVH; PATIENT PRESENTS WITHDRAWN AND ISOLATIVE; PATIENT REFUSED VITAMIND3 THIS MORNING; PATIENT ATE 25% OF BREAKFAST THEN REMOVED ENSURE FROM PATIENT FRIDGE AND DRANK IT BEFORE STAFF COULD INTERVEAN; PROGRAM MANAGER RN INFORMED PATIENT THESE ACTIONS WERE UNACCEPTABLE AND THAT WE KNOW THAT ENSURE IS NOT ALLOWED WITHOUT EATING 50% OR MORE OF MEALS; PATIENT WAS COOPERATIVE WITH EDUCATION GIVEN; LOW FALL RISK PRECAUTIONS IN PLACE-SEZIURE PRECAUTIONS IN PLACE; WILL CONTINUE TO MONITIOR PER [facility] PROTOCOL;
[2021-12-11 18:49] LABS: HEMATOCRIT 44.8 % (37.0-47.0); HEMOGLOBIN 14.3 gm/dL (12.0-15.0); MCH 29.2 pg (26.0-34.0); MCV 91.4 fL (80.0-100.0); RBC 4.9 mil/uL (4.20-5.00); RDW 13.7 % (10.5-14.5); WBC 5.7 thou/uL (4.0-11.0)
[2021-12-11 19:00] LABS: CALCIUM 9.8 mg/dL (8.5-10.1); CREATININE 0.7 mg/dL (0.6-1.0); POTASSIUM 3.6 mmol/L (3.5-5.1)
[2021-12-11 19:09] VITALS: BP 150/73
[2021-12-11 19:45] VITALS: BP 150/73
--- NOTE | 2021-12-11 21:45 | NUR ---
PATIENT CARE CONTINUED INTO NECT SHIFT; NO S/O ACUTE DISTRESS NOTED; A&O*3; PRESENTS PLEASNT-COOPERATIVE; BLE EDEMA STILL PRESENT IN ANKLES; PATIENT DENIES SI/HI/AVH; COMPLAINTS OF CHRONIC PAIN 02/27-MEDICATIONS GIVEN PER JAN; VSS ON ROOMAIR; PATIENT NOTED BEING IN BED @1800-PATIENT STATES BEING INCRESINGLY TIRED THIS EVENING; PATIENT STILL VERBALIZES DISCOMFORT WITH URINATING-URINALYSIS WAS ORDERED TODAY-PENDING RESULTS; PATIENT ALSO STATES CONTINOUS VAGINAL ITCHING, ALTHOUGH DENIES HAVING ANY DISCHARGE-PERICARE GIVEN; LOW-FALL PRECAUTIONS ARE IN PLACE; SEZUIRE PRECAUTIONS IN PLACE; CARE HANDED OFF TOO RN;
[2021-12-12 09:20] VITALS: BP 136/61
[2021-12-12 12:23] LABS: URINE BILIRUBIN NEGATIVE (Negative); URINE BLOOD NEGATIVE (Negative); URINE CLARITY CLEAR; URINE COLOR YELLOW; URINE GLUCOSE-RANDOM* NEGATIVE (Negative); URINE KETONES NEGATIVE (Negative); URINE LEUKOCYTES-REFLEX NEGATIVE (Negative); URINE NITRITE-REFLEX NEGATIVE (Negative); URINE PROTEIN (DIPSTICK) NEGATIVE (Negative); URINE SPECIFIC GRAVITY >= 1.030 (1.005-1.035); URINE UROBILINOGEN 0.2 E.U./dl (0.2-1.0)
--- NOTE | 2021-12-12 12:42 | NUR ---
PATIENT CARE ASSUMED AT 0700 - PATIENT STATES STILL HAVING DISCOMFORT WHEN URINATING. OBTAINED SAMPLE AND SENT TO LAB JUST BEFORE 1300. PATIENT STATES HAD GOOD NIGHT SLEEP. DENIES S/I OR H/I - BEHAVIOR CALM AND AGREEABLE. GOOD APPETITE - COMPLETION OF 75 PERCENT OF BOTH BREAKFAST AND LUNCH. PATIENT UP AND AMBULATING AROUND UNIT. MAKES NEEDS KNOWN READILY. HEART RATES STRONG AND STEADY AND LUNGS CLEAR ON AUSCULTATION. SLEPT WELL LAST NIGHT ACCORDING TO PATIENT. VSWNL AT MORNING. WILL CONTINUE TO MONITOR PATIENT FOR SAFETY AND TO ADDRESS ANY CHANGE WHEN NEEDED.
[2021-12-12 19:40] VITALS: BP 134/32
--- NOTE | 2021-12-12 22:58 | NUR ---
PATIENT CARE WAS RESUMED AT 1900. SHE IS ALERT AND ORIENTED. SITTING IN THE DINING AREA WATCHING TV. SHE IS ABLE TO VERBALISE HER CONCERNS. LUNGS ARE CLEAR, BS ACTIVE X4 QUAD. SHE TOOK HER MEDS WHOLE. SHE WANTED ENSURE FOR SNACK AND NURSE TOLD HER THAT SHE ONLY GET THAT IF HER ATE LESS THAN 505 OF HER MEALS AND SHE GOT UPSET AND REFUSED OTHER SNACK.
[2021-12-13 09:34] VITALS: BP 133/73
--- NOTE | 2021-12-13 11:39 | NUR ---
RT Progress Note- Kate has been a fairly active participant in recreation therapy groups and programming throughout her admission thus far. She does decline to participate in exercise d/t fibromyalgia pain per patient. She has insight into her reason for admission and is able to voice the importance of utilizing coping skills and maintaining medication. NON DESTRUCTIVE TESTING SUPERVISOR will continue to encourage patient participation in the milieu and groups.
--- NOTE | 2021-12-13 12:52 | NUR ---
RESUMMED CARE; PATIENT LOCATED IN [place]ING [place] WATCHING TV; PATIENT DENIED SI/HI/AVH; COMPLAINTS OF CHRONIC PAIN 04/29-MEDICATIONS GIVEN PER JAN; VSS ON ROOMAIR; PATIENT PRESENTS FLUSTERED WITH STAFF- PT. STATES SHE WANTED AN ENSURE AND WAS DENIED BY THE VMWARE SYSTEMS ADMINISTRATOR AT BREAKFAST; CLOTHING SORTER REPORTED PATIENT DID NOT EAT BUT 20% OF MEAL-ORDERS FROM STATE PATIENT MUST EAT 50% OF MEALS TO RECIEVE ENSURE SUPPLEMENT; PATIENT BECAME FLUSTERED WITH STAFF AND STATES "THEN JUST LET ME LEAVE ALREADY, SO I CAN DO WHAT I WANT TO." MEDICAL APPOINTMENT SCHEDULER WAS ABLE TO CALM PATIENT; MEDICATIONS TAKEN WHOLE-PT. REFUSED VITIMIND3; DENIES SOB-CP; LOW-FALL RISK PRECAUTIONS ARE IN PLACE; SEIZURE PRECAUTIONS ARE IN PLACE; WILL CONTINUE TO MONITIOR PER [facility] PROTOCOL;
[2021-12-13 14:49] VITALS: BP 133/73
--- NOTE | 2021-12-13 16:48 | NUR ---
Family meeting with Dr. Orozco, EMILEE and Jamin Chaparro (patient's son). Jamin reported that his mother is unable to reside in the home. He further reported that there are no other family members able to have the patient in the home due to the problems she creates. Jamin asked about residential facilities and nursing homes for the patient. The EMILEE and Dr. Orozco explained that the patient would not qualify for half-way as her diagnosis is mental health alone. The EMILEE and Dr. Orozco explained that the patient is ready for discharge and that we would need to look into homeless shelters for the patient if she didn't have options. Jamin reported that he and his sister have looked into buying a home for the patient. Jamin remained adamant that there were no family options for the patient.
[2021-12-13 17:03] VITALS: BP 135/77
[2021-12-13 19:56] VITALS: BP 142/73
--- NOTE | 2021-12-14 04:56 | NUR ---
12-14-21 CARE TRANSFERRED 0 OBSERVED PT SITTING IN DAY ROOM. LATER PT AAOX4, VSS, RR EVEN AND NONLABORED ON RA, LUNGS CLEAR, HT RR, ABD SOFT/ACTIVE/ NONTENDER. PT DENIES SI/HI BUT REPORTS GENERALIZED PAIN AND SCALES 6 ON 0-10 SCALE. UPON REASSESSMENT PT SCORED AT 3 ON 0-10 SCALE. PT HAS BEEN CALM AND COOPERATIVE. PT WILL CONTINUE TO BE MONITOR PER [facility] PROTOCOL.
[2021-12-14 09:08] VITALS: BP 140/64
--- NOTE | 2021-12-14 10:33 | NUR ---
Nutrition followup: Pt continues on H unit with bipolar, psychosis. Weights variable from [id number]# recently. ~stable per pt. Eating 50-100% of meals. Drinks ensure once a day typically. 12/13 BM. On vitamin D, folic acid supplementation. pt was sitting in the sun in front of window in room stating she was working on getting her vitamin D during visit. Encouraged 30 minutes of filtered light daily. Low nutrition risk.
[2021-12-14 10:43] VITALS: BP 140/64
--- NOTE | 2021-12-14 10:51 | NUR ---
RESUMMED CARE; PATIENT LOCATED IN ROOM RESTING- NO S/O ACUTE DISTRESS NOTED; A&O*4; PRESENTS [id number]; PATIENT HAS BEEN MORE IRRITABLE TODAY FROM PAST CARES; PATIENT STATES SHE IS JUST UPSET ABOUT BEING TOLD SHE HAS TO GO TO HOMELESS INTERMEDIATE; DENIES SI/HI/AVH; COMPLAINT OF CHONIC PAIN 05/29-MEDICATIONS GIVEN PER JAN; POSSIBLE DISCHARGE TODAY PER ; LOW-FALL RISK PRECAUTIONS ARE IN PLACE; SEZIURE PRECAUTIONS ARE IN PLACE; PATIENT IS EATING MORE OF MEALS AND ASKING FOR ENSURE LESS; WILL CONTINUE TO MONITIOR PER [facility] PROTOCOL;
[2021-12-14] MEDS ORDERED: LEVSIN0.125 MG PO (11:06)
[2021-12-14] MEDS ORDERED: ELIQUIS2.5 MG PO (11:07)
[2021-12-14] MEDS ORDERED: SIMVASTATIN40 MG PO (11:07)
[2021-12-14] MEDS ORDERED: CLONIDINE1 EACH TRANSDERM (11:08)
[2021-12-14] MEDS ORDERED: TRAZODONE HCL100 MG PO (11:09)
[2021-12-14] MEDS ORDERED: CARVEDILOL3.125 MG PO (11:09)
[2021-12-14] MEDS ORDERED: DIAZEPAM 2MG TAB2 MG PO (11:09)
[2021-12-14] MEDS ORDERED: DIVALPROEX SOD500 M1 PO (11:09)
[2021-12-14] MEDS ORDERED: KLOR-CON M2020 MEQ PO (11:10)
[2021-12-14] MEDS ORDERED: COLACE100 MG PO (11:10)
[2021-12-14] MEDS ORDERED: PROTONIX 20 MG20 M1 PO (11:11)
[2021-12-14] MEDS ORDERED: SENNA8.8 MG/5 M PO (11:11)
[2021-12-14] MEDS ORDERED: TRIAMCINOLONE 080 G3 TOP (11:12)
[2021-12-14 12:55] VITALS: BP 140/64
--- NOTE | 2021-12-14 13:42 | NUR ---
Phone call to [facility] regarding openings. Was informed to check back in at 10:30AM
--- NOTE | 2021-12-14 15:50 | NUR ---
Fax to PCP and psychiatrist - Discharge summary
--- NOTE | 2021-12-14 16:44 | NUR ---
EMILEE recieved a call from Monica, Nurse Mine Exploration Engineer, concerning Pt not wanting to accept her discharge medications. SW went to the ED where Monica and the Pt were waiting on a cab. SW attempted to talk to the Pt about her medications and informed the medications were free of charge. Pt refused stating she did not want the medication and had her own. Pt's cab pulled up and Pt resisted getting in the cab stating " if its not taking me to the [facility], then I am going to call the police and say I was kidnapped". EMILEE informed the cab voucher was not to the [facility] but to [facility]. Pt continued to refuse to get into the cab. The cable former talked to the Pt and Pt then got into the cab. Pt did not take the medications provided. EMILEE returned the medications to the ot[facility] pharmacy.
== END 2021-12-14 15:00 | disposition home or self-care (01) | DRG 885 ==
LOC: SBH
PROVIDERS: Internal Medicine; Psychiatry & Neurology Psychiatry; ADMIT Psychiatry & Neurology Psychiatry; ATTEND Psychiatry & Neurology Psychiatry
DX: F31.2 Bipolar disorder, current episode manic severe with psychotic features (principal); I10 Essential (primary) hypertension; E78.5 Hyperlipidemia, unspecified; F41.9 Anxiety disorder, unspecified; G40.909 Epilepsy, unspecified, not intractable, without status epilepticus; M79.7 Fibromyalgia; Z79.899 Other long term (current) drug therapy; Z88.6 Allergy status to analgesic agent; Z88.8 Allergy status to other drugs, medicaments and biological substances; Z86.711 Personal history of pulmonary embolism; Z83.3 Family history of diabetes mellitus
CPT/HCPCS: 10880